=== PATIENT | female | born 1990 | race Hispanic/Latino ===

== ENCOUNTER 2016-11-27 23:39 | Emergency (ER) | payer SELFPAY ==
[~2016-11-27] VITALS: Ht 142.2 cm; Wt 64.4 kg
--- NOTE | 2016-11-28 00:23 | ED GU-Female ---
General Chief Complaint: -Female Stated Complaint: AB PAIN PAIN W URINE Nursing Triage Note: PAINFUL URINATION X2 DAYS WORSE TONIGHT Nursing Sepsis Screen: No Definite Risk Source: patient, family Exam Limitations: language barrier History of Present Illness Time seen by provider: 00:14 Initial Comments Patient has ER with her and a family friend who speaks Japanese. Using the language line and Aleksandr we ascertain that she's had one week of nausea and chills and now for the past 3 or 4 days she's had pain in her pelvis whenever she urinates. She is not presently nauseated nor she having a fever or chills. She says she is not on control however her last child was 5 years ago. She has had no tubal or other reason not to be . She has no drug allergies or past significant medical history. Allergies and Home Medications Allergies Coded Allergies: No Known Drug Allergies (Unverified , 11/27/16) Home Medications Doxycycline Hyclate 100 Mg Tablet, 100 MG PO BID for 14 Days, #27 Ref 0 Prescribed by: JANET DUMONT on 11/28/16 0200 Ondansetron 4 Mg Tab.rapdis, 4 MG PO Q6H PRN for NAUSEA/VOMITING-1ST LINE, #14 Ref 0 Prescribed by: JANET DUMONT on 11/28/16 0200 Constitutional: chills, No diaphoresis, dizziness, No fever, malaise, No weight gain, No weight loss EENTM: No ear pain, No eye pain Respiratory: No cough, No short of breath Cardiovascular: No chest pain, No palpitations, No syncope Gastrointestinal: abdominal pain (bilateral lower quadrants), No constipation, No diarrhea, No loss of appetite, nausea, No vomiting Genitourinary: burning, denies discharge, dysuria, denies flank pain : No (urine hCG negative) Musculoskeletal: No back pain, No joint pain Skin: No pruritus, No rash Psychiatric/Neurological: Denies Headache, Denies Numbness Past Ggwevcy-Pekiwe-Snijkx Hx Patient Social History Alcohol Use: Denies Use Recreational Drug Use: No Smoking Status: Never a Smoker 2nd Hand Smoke Exposure: No Recent Foreign Travel: No Contact w/Someone Who Travel: No Recent Infectious Disease Expo: No Recent Hopitalizations: No Immunizations Up To Date Tetanus Booster (TDap): Unknown PED Vaccines UTD: Yes Seasonal Allergies Seasonal Allergies: No Surgeries Surgeries: Section Reproductive System : No Physical Exam Vital Signs Vital Sign - Last 12Hours 11/27/16 23:52 Temp 97.5 Pulse 78 Resp 16 B/P (MAP) 115/58 Pulse Ox 99 O2 Delivery Room Air Capillary Refill : Less Than 3 Seconds General Appearance: WD/WN, mild distress HEENT: PERRL/EOMI, TMs normal Neck: non-tender, supple, normal inspection Cardiovascular: normal peripheral pulses, regular rate, rhythm, no edema Respiratory: chest non-tender, lungs clear Gastrointestinal: normal bowel sounds, soft, tenderness (bilateral lower quadrants), No hernia, other (well-healed section scar) Back: normal inspection, no CVA tenderness, no vertebral tenderness Extremities: non-tender, normal inspection, no pedal edema, no calf tenderness , normal capillary refill Neurologic/Psychiatric: no motor/sensory deficits, alert, oriented x 3 Skin: normal color, warm/dry Progress/Results/Core Measures Results/Orders Lab Results Laboratory Tests Test 11/28/16 00:10 11/28/16 00:45 Range/Units Urine Color YELLOW Urine Clarity CLEAR Urine pH 7 5-9 Urine Specific [place] 1.010 L 1.016-1.022 Urine Protein NEGATIVE NEGATIVE Urine Glucose (UA) NEGATIVE NEGATIVE Urine Ketones NEGATIVE NEGATIVE Urine Nitrite NEGATIVE NEGATIVE Urine Bilirubin NEGATIVE NEGATIVE Urine Urobilinogen NORMAL NORMAL MG/DL Urine Leukocyte Esterase NEGATIVE NEGATIVE Urine RBC (Auto) NEGATIVE NEGATIVE Urine RBC NONE /HPF Urine WBC NONE /HPF Urine Squamous Epithelial Cells 5-10 /HPF Urine Crystals NONE /LPF Urine Bacteria NEGATIVE /HPF Urine Casts NONE /LPF Urine Mucus NEGATIVE /LPF Urine Culture Indicated NO Urine Test NEGATIVE NEGATIVE White Blood Count 9.5 4.3-11.0 10^3/uL Red Blood Count 4.79 4.35-5.85 10^6/uL Hemoglobin 12.3 11.5-16.0 G/DL Hematocrit 38 35-52 % Mean Corpuscular Volume 79 L 80-99 FL Mean Corpuscular Hemoglobin 26 25-34 PG Mean Corpuscular Hemoglobin Concent 33 32-36 G/DL Red Cell Distribution Width 15.8 H 10.0-14.5 % Platelet Count 269 130-400 10^3/uL Mean Platelet Volume 10.1 7.4-10.4 FL Neutrophils (%) (Auto) 62 42-75 % Lymphocytes (%) (Auto) 29 12-44 % Monocytes (%) (Auto) 9 0-12 % Eosinophils (%) (Auto) 1 0-10 % Basophils (%) (Auto) 0 0-10 % Neutrophils # (Auto) 5.9 1.8-7.8 X 10^3 Lymphocytes # (Auto) 2.7 1.0-4.0 X 10^3 Monocytes # (Auto) 0.8 0.0-1.0 X 10^3 Eosinophils # (Auto) 0.1 0.0-0.3 10^3/uL Basophils # (Auto) 0.0 0.0-0.1 10^3/uL Sodium Level 138 135-145 MMOL/L Potassium Level 3.9 3.6-5.0 MMOL/L Chloride Level 108 H 98-107 MMOL/L Carbon Dioxide Level 19 L 21-32 MMOL/L Anion Gap 11 5-14 MMOL/L Blood Urea Nitrogen 16 7-18 MG/DL Creatinine 0.59 L 0.60-1.30 MG/DL Estimat Glomerular Filtration Rate > 60 BUN/Creatinine Ratio 27 Glucose Level 108 H 70-105 MG/DL Calcium Level 9.4 8.5-10.1 MG/DL Magnesium Level 2.0 1.8-2.4 MG/DL Total Bilirubin 0.2 0.1-1.0 MG/DL Aspartate Amino Transf (AST/SGOT) 26 5-34 U/L Alanine Aminotransferase (ALT/SGPT) 30 0-55 U/L Alkaline Phosphatase 60 40-136 U/L Total Protein 6.5 6.4-8.2 GM/DL Albumin 3.8 3.2-4.5 GM/DL My Orders Orders - TIM,JANET J Hcg,Qualitative Urine (11/28/16 00:19) Ua Culture If Indicated (11/28/16 00:19) Cbc With Automated Diff (11/28/16 00:45) Comprehensive Metabolic Panel (11/28/16 00:45) Magnesium (11/28/16 00:45) Saline Lock/Iv-Start (11/28/16 00:45) Ct Abdomen/Pelvis Wo (11/28/16 00:47) Neisseria Gonorrhea Dna (11/28/16 01:26) Chlamydia Dna (11/28/16 01:26) Vital Signs/I&O Vital Sign - Last 12Hours 11/27/16 23:52 Temp 97.5 Pulse 78 Resp 16 B/P (MAP) 115/58 Pulse Ox 99 O2 Delivery Room Air Blood Pressure Mean: 77 Progress Note #1: Time: 00:50 Progress Note Patient's having significant nausea and lower quadrant abdominal pain for over a week is progressively getting worse. She is unable to tolerate the pain. Urinalysis was unremarkable. We'll go ahead and expand search looking for other evidence of infection that a CAT scan of her abdomen. Dining versus appendicitis versus other? No diarrhea or constipation history. She does not have a primary care physician to follow up with so we'll do more workup tonight. Progress Note #2: Time: :55 Progress Note Rules out other structural other than the ovarian or possibly even.. We'll go ahead and get a GC chlamydia based on the urine and have her follow up outpatient with her primary care physician for the results. We'll going give her Rocephin tonight and she can start the doxycycline. Diagnostic Imaging Diagonstic Imaging: CT Plain Films/CT/US/NM/MRI: abdomen, pelvis (without) Comments Asymmetric prominence of the bilateral adnexa with the left greater than right. May represent subserosal fibroids versus ovarian cysts or follicles. Other etiologies can't be definitively excluded. If there is further clinical concern , pelvic ultrasound may be obtained for further evaluation. Incidentally the appendix is normal size without evidence or any plantar change. Trace pelvic free fluid suggested likely physiologic. No free air. The bowel is normal caliber. The liver spleen pancreas gallbladder and kidneys are unremarkable. Reviewed: Reviewed [place] Study, Reviewed by Me Departure Impression Impression: Primary Impression: Abdominal pain Qualified Codes: R10.30 - Lower abdominal pain, unspecified Disposition: HOME, SELF-CARE Condition: Stable Departure-Patient Inst. Decision time for Depature: :55 Referrals: NO,LOCAL PHYSICIAN (PCP) Primary Care Physician Patient Instructions: Ovarian Cyst (DC) Add. Discharge Instructions: Because of your abdominal pain may be from your ovaries or may be from an infection. We have given you an antibiotic shot tonight and we'll start you on doxycycline which is an antibiotic to be taken twice a day 30 minutes before meals for 2 weeks. Tomorrow morning call your primary care physician's clinic and have them follow-up the results of the send out labs performed today looking for evidence of bacterial infection. If they're positive you need to complete the doxycycline. If they are negative then you can stop the antibiotics. Drink plenty of fluids and if you develop high fevers or intractable nausea vomiting not controlled by the Zofran that I have sent to the pharmacy for you then you may return to the ER. Take Zofran 1 tablet under the tongue and allowed to dissolve every 6 hours as needed for nausea or vomiting. All discharge instructions reviewed with patient and/or family. Voiced understanding. Scripts Ondansetron (Zofran Odt) 4 Mg Tab.rapdis 4 MG PO Q6H Y for NAUSEA/VOMITING-1ST LINE, #14 TAB 0 Refills Prov: JANET DUMONT 11/28/16 Doxycycline Hyclate (Doxycycline Hyclate) 100 Mg Tablet 100 MG PO BID for 14 Days, #27 TAB 0 Refills Prov: JANET DUMONT 11/28/16 Copy Copies To 1: [place] DO JANET DUMONT Nov 28, 2016 00:23
[2016-11-28 00:27] LABS: BILIRUBIN,URINE NEGATIVE (NEGATIVE); KETONES,URINE NEGATIVE (NEGATIVE); LEUKOCYTE ESTERASE ,URINE NEGATIVE (NEGATIVE); NITRITE,URINE NEGATIVE (NEGATIVE); PH,URINE 7 (5-9); PROTEIN,URINE NEGATIVE (NEGATIVE); UROBILINOGEN,URINE NORMAL (NORMAL)
[2016-11-28 00:56] LABS: BASOPHILS % (AUTO) 0 % (0-10); EOSINOPHILS # (AUTO) 0.1 10^3/uL (0.0-0.3); EOSINOPHILS % (AUTO) 1 % (0-10); LYMPHOCYTES # (AUTO) 2.7 X 10^3 (1.0-4.0); LYMPHOCYTES % (AUTO) 29 % (12-44); MEAN CORPUSCULAR HEMOGLOBIN 26 PG (25-34); MEAN CORPUSCULAR HGB CONC 33 G/DL (32-36); MEAN CORPUSCULAR VOLUME 79 FL (80-99); MEAN PLATELET VOLUME 10.1 FL (7.4-10.4); MONOCYTES # (AUTO) 0.8 X 10^3 (0.0-1.0); MONOCYTES % (AUTO) 9 % (0-12); NEUTROPHILS # (AUTO) 5.9 X 10^3 (1.8-7.8); NEUTROPHILS % (AUTO) 62 % (42-75); PLATELET COUNT 269 10^3/uL (130-400); RED BLOOD COUNT 4.79 10^6/uL (4.35-5.85); RED CELL DISTRIBUTION WIDTH 15.8 % (10.0-14.5); WHITE BLOOD COUNT 9.5 10^3/uL (4.3-11.0)
[2016-11-28 01:22] LABS: ALANINE AMINOTRANSFERASE 30 U/L (0-55); ALBUMIN 3.8 GM/DL (3.2-4.5); ANION GAP 11 MMOL/L (5-14); ASPARTATE AMINO TRANSFERASE 26 U/L (5-34); BILIRUBIN,TOTAL 0.2 MG/DL (0.1-1.0); BLOOD UREA NITROGEN 16 MG/DL (7-18); BUN/CREATININE RATIO 27; CALCIUM 9.4 MG/DL (8.5-10.1); CARBON DIOXIDE 19 MMOL/L (21-32); CHLORIDE 108 MMOL/L (98-107); CREATININE SERUM 0.59 MG/DL (0.60-1.30); GFR ESTIMATED > 60; GLUCOSE 108 MG/DL (70-105); POTASSIUM 3.9 MMOL/L (3.6-5.0); SODIUM 138 MMOL/L (135-145); TOTAL PROTEIN 6.5 GM/DL (6.4-8.2)
[2016-11-28] MEDS ORDERED: ONDA4TAB8 PO (02:00)
[2016-11-28] MEDS ORDERED: DOXY100T2 PO (02:00)
[2016-11-28] MEDS ORDERED: RX-ONDANSETRON 4 MG ODT (ZOFRAN) PPK #4 PO STA (02:13)
[2016-11-28] MEDS ORDERED: cefTRIAXone 250 MG (ROCEPHIN) VIAL IM ONE (02:15)
[2016-11-28] MEDS ORDERED: DOXYCYCLINE 100 MG (VIBRAMYCIN) TABLET PO ONE (02:15)
[2016-11-28] MEDS ORDERED: LIDOCAINE 1% INJ 20 ML (XYLOCAINE) VIAL INJ ONE (02:15)
[2016-11-28 02:27] VITALS: BP 112/44
--- NOTE | 2016-11-28 07:44 | Diagnostic Imaging Report ---
PROCEDURE: CT abdomen and pelvis without contrast. TECHNIQUE: Multiple contiguous axial images were obtained through the abdomen and pelvis without the use of intravenous contrast. INDICATION: Abdominal pain, painful urination. EXAMINATION: CT abdomen/ pelvis without contrast dated 11/28/2016. FINDINGS: The lung bases are clear. No acute osseous abnormalities appreciated. The nonopacified abdominal viscera are limited in evaluation due to the lack of IV contrast but no gross acute abnormalities appreciated within the liver or the spleen. Gallbladder is contracted. There is an anterior abdominal wall hernia containing fat which is quite small in appearance. The kidneys contain a few tiny punctate stones. No hydronephrosis is seen on either side. There is no free fluid or air. No lymphadenopathy. The pancreas unremarkable. There is minimal free fluid in the pelvis with fluid in the endometrial canal also noted likely all physiologic. Cystic changes left adnexa most likely ovarian. There is some heterogeneity noted in the area of the uterus and bilateral adnexal regions which could be all ovarian or could be due to underlying fibroids. Sonography could better characterize. Appendix unremarkable. IMPRESSION: Incidental findings in the abdomen and pelvis as described above with prominence of the uterine and bilateral adnexal regions left greater than right. See above description. A nonspecific vague hyperdensity in the left adnexal region is noted which measures approximately 12 mm in greatest dimension and could be a small hemorrhagic cyst associated with the left ovary with other lesions not excluded. Pelvic sonography could better characterize and would be recommended. Dictated by: Dictated on workstation # [id number]
== END 2016-11-28 02:27 | disposition home or self-care (01) ==
LOC: ER 23:45
DX: R10.31 Right lower quadrant pain (principal); R10.32 Left lower quadrant pain; Z87.59 Personal history of other complications of pregnancy, childbirth and the puerperium
CPT/HCPCS: 36415; 74176; 80053; 81000; 83735; 84703; 85025; 96372